=== PATIENT | female | born 1965 | race Hispanic/Latino ===

== ENCOUNTER 2017-06-01 19:42 | Emergency (ER) | payer OTHER, BC ==
[2017-06-01 19:54] VITALS: BP 159/86; PULSE 68; RESP 16; TEMP 98.1
[2017-06-01] MEDS ORDERED: Naproxen 500 MG TAB PO STA (20:48)
--- NOTE | 2017-06-01 20:48 | ED PDOC ---
Lower Extremity Pain/Injury Time Seen by Provider: 06/01/17 19:59 Chief Complaint (Nursing): Lower Extremity Problem/Injury Chief Complaint (Provider): Lower Extremity Problem/Injury History Per: Patient History/Exam Limitations: no limitations Onset/Duration Of Symptoms: Mins (prior to arrival) Current Symptoms Are (Timing): Still Present Additional Complaint(s): 51 year old female, RN at [employer], who presents to the emergency department with a complaint of right 2nd and 3rd toe injury status post transporting a stretcher when one of the wheels ran over her right foot prior to arrival. Denied any numbness or limited range of motion. PMD: none provided Past Medical History Reviewed: Historical Data, Nursing Documentation, Vital Signs Vital Signs: Last Vital Signs Temp 98.1 F 06/01/17 19:49 Pulse 68 06/01/17 19:49 Resp 16 06/01/17 19:49 BP 159/86 H 06/01/17 19:49 Pulse Ox - Family History Family History: States: No Known Family Hx - Allergies Allergies/Adverse Reactions: Allergies Allergy/AdvReac Type Severity Reaction Status Date / Time No Known Allergies Allergy Verified 06/01/17 20:39 Review of Systems ROS Statement: Except As Marked, All Systems Reviewed And Found Negative Musculoskeletal: Positive for: Foot Pain (right-sided), Other (good ROM of right toes) Neurological: Negative for: Numbness (right toes) Physical Exam - Reviewed Nursing Documentation Reviewed: Yes Vital Signs Reviewed: Yes - Physical Exam Appears: Positive for: Well, Non-toxic, No Acute Distress Skin: Positive for: Normal Color. Negative for: Rash Pulses-Dorsalis Pedis (R): 2+ Extremity: Positive for: Normal ROM (right foot), Tenderness (mild tenderness and mild edema to the R 2nd and 3rd toes ), Capillary Refill (2+). Negative for : Deformity (right foot) Neurologic/Psych: Positive for: Alert (x3), audio video mechanic II-XII (intact), Oriented. Negative for: Motor/Sensory Deficits Medical Decision Making Medical Decision Making: Initial Impression: Right foot injury Initial Plan: * Naproxen 500mg PO * Xray foot (right) XR right foot: no fracture, no dislocation, as read by PA Patient advised that official radiology read of XR is still pending and will call the patient if there is any discrepancy within 24 hours. X-ray results discussed with the patient in great detail. Diagnosis foot and toe contusion discussed with the patient. Toes taped. Advised to rest, elevate, ice affected area pain. Instructed to take [id number] Aleve as needed for pain. Advised to follow up with Workmen's Compensation physician in 1-2 days without fail. Return to the emergency room at any time for any new or worsening symptoms. Patient states she fully agrees with and understands discharge instructions. States that she agrees with the plan and disposition. Verbalized and repeated discharge instructions and plan. I have given the patient opportunity to ask any additional questions. Scribe Attestation: Documented by Lula Frost, acting as a scribe for Sirisha Cisneros PA-C. Provider Scribe Attestation: All medical record entries made by the Scribe were at my direction and personally dictated by me. I have reviewed the chart and agree that the record accurately reflects my personal performance of the history, physical exam, medical decision making, and the department course for this patient. I have also personally directed, reviewed, and agree with the discharge instructions and disposition. Disposition - Clinical Impression Clinical Impression: Toe contusion - Patient ED Disposition Is Patient to be Admitted: No Counseled Patient/Family Regarding: Studies Performed, Diagnosis, Need For Followup, Rx Given - Disposition Disposition: Routine/Home Disposition Time: 21:36 Condition: STABLE Additional Instructions: Thank you for letting us take care of you today. You were treated for toe contusion / foot contusion. The emergency medical care you received today was directed at your acute symptoms. Rest, ice and elevate, take aleeve over the counter for pain. It may take several days for your symptoms to resolve. Return to the Emergency Department if your symptoms worsen, do not improve, or if you have any other problems. Please contact workman's comp doctor in 2 days for re-evaluation and follow up. Bring any paperwork you were given at discharge with you along with any medications you are taking to your follow up visit. Our treatment cannot replace ongoing medical care by a primary care provider (PCP) outside of the emergency department. Thank you for allowing the [facility] team to be part of your care today. If you had an X-Ray : A Radiologist will review the ED reading if any change in treatment is needed we will contact you. 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
[2017-06-01] MEDS ORDERED: Naproxen 500 MG TAB PO ONE (20:53)
--- NOTE | 2017-06-02 11:04 | RAD ---
PROCEDURE: Right Foot Radiographs. HISTORY: pain COMPARISON: None. FINDINGS: BONES: No acute fracture. JOINTS: Degenerative changes. SOFT TISSUES: Normal. OTHER FINDINGS: Achilles enthesophyte. IMPRESSION: No demonstrated fracture or dislocation.
== END 2017-06-01 22:05 | disposition home or self-care (01) ==
LOC: H.ER 19:42
DX: S90.31XA Contusion of right foot, initial encounter (principal); W19.XXXA Unspecified fall, initial encounter; Y92.238 Other place in hospital as the place of occurrence of the external cause